=== PATIENT | male | born 2000 | race Hispanic/Latino ===

== ENCOUNTER 2021-10-23 20:36 | Emergency (ER) | payer SELFPAY ==
[2021-10-23 20:50] VITALS: BP 146/86
--- NOTE | 2021-10-23 21:26 | XRay Report ---
XR chest routine 2V INDICATION / CLINICAL INFORMATION: chestpain COMPARISON: None available. FINDINGS: SUPPORT DEVICES: None. HEART / MEDIASTINUM: No significant abnormality. LUNGS / PLEURA: Lungs are clear. Costophrenic sulci are sharp. No pneumothorax. ADDITIONAL FINDINGS: No significant additional findings. IMPRESSION: 1. No acute findings. Signer Name: Hima Herrera MD Signed: 10/23/2021 9:22 PM Workstation Name: [id number]
[2021-10-23] MEDS ORDERED: KETOROLAC 30 MG/1 ML INJ IV ONE (21:49)
[2021-10-23] MEDS ORDERED: dexAMETHasone 20 MG/5 ML VIAL IV ONE (21:49)
[2021-10-23] MEDS ORDERED: LIDOCAINE VISCOUS 2% 15 ML ORAL LIQD PO ONE (21:50)
[2021-10-23] MEDS ORDERED: ASPIRIN 325 MG TAB PO ONE (21:52)
[2021-10-23 23:52] LABS: Basophils # (Auto) 0.1 K/mm3 (0.0-0.1); Basophils % (Auto) 0.9 % (0.0-1.8); Eosinophils # (Auto) 0.1 K/mm3 (0.0-0.4); Eosinophils % (Auto) 1.9 % (0.0-4.3); Hematocrit 48.1 % (35.5-45.6); Hemoglobin 16.1 gm/dl (11.8-15.2); Lymphocytes # (Auto) 2.9 K/mm3 (1.2-5.4); Lymphocytes % (Auto) 41.7 % (13.4-35.0); Mean Corpuscular HGB Conc 34 % (32-34); Mean Corpuscular Volume 85 fl (84-94); Monocytes # (Auto) 0.5 K/mm3 (0.0-0.8); Monocytes % (Auto) 6.7 % (0.0-7.3); Platelet Count 291 K/mm3 (140-440); Red Blood Count 5.69 M/mm3 (3.65-5.03); Red Cell Distribution Width 13.2 % (13.2-15.2)
[2021-10-24 00:09] LABS: Alanine Aminotransferase 31 units/L (7-56); Albumin 4.6 g/dL (3.9-5); Blood Urea Nitrogen 17 mg/dL (9-20); Calcium 9.2 mg/dL (8.4-10.2); Hemolysis Index 5
[2021-10-24 00:10] LABS: BUN/Creatinine Ratio 24
--- NOTE | 2021-10-24 00:19 | Emergency Department Report ---
ED Chest Pain HPI - General Chief Complaint: Chest Pain Stated Complaint: CHEST PAIN Source: patient Mode of arrival: Ambulatory Limitations: No Limitations - History of Present Illness Initial Comments: Patient is a 20-year-old male with no past medical history presented to the ED with complaint of acute onset persistent intermittent palpitations and left-sided chest pain for the last 2 weeks, stating that his heart rate sometimes shoots to 120 bpm during activity. Patient states that the chest pain is left-sided and gets worse with physical activity or lifting. Patient states that he has been monitoring his heart rate through his apple watch and at times it goes up to 130s during the physical activity. Patient denies diaphoresis, shortness of breath, dizziness, syncope, nausea and vomiting, abdominal pain, cough, sore throat, headache, neck pain, upper extremity pain, follow-up or traumatic injury. MD Complaint: chest pain (left-sided), other (tachycardia) -: Sudden, week(s) (2) Onset: during exertion Pain Location: left chest Pain Radiation: none Severity scale (0 -10): 6 Quality: aching Consistency: intermittent Improves With: rest Worsens With: exertion, movement, other (activity) re: denies: nausea, vomting, diaphoresis, dyspnea, sense of impending doom Other Symptoms: palpitations. denies: cough, fever, syncope, rash, acid taste in mouth, leg swelling, burping Treatments Prior to Arrival: none Aspirin use within the Past 7 Days: (0) No - Related Data Previous Rx's Medication Instructions Recorded Last Taken Type Naproxen 500 mg PO Q12H PRN #24 tab 10/24/21 Unknown Rx Allergies Allergy/AdvReac Type Severity Reaction Status Date / Time No Known Allergies Allergy Unverified 10/23/21 20:53 Heart Score - HEART Score History: Slightly suspicious EKG: Normal Age: < 45 Risk factors: No known risk factors Troponin: < normal limit HEART Score: 0 - EKG Read Time Time EKG Completed: 20:53 EKG Read Time: 20:59 - Critical Actions Critical Actions: 0-3 pts:0.9-1.7%risk of adverse cardiac event.Candidate for discharge ED Review of Systems ROS: Stated complaint: CHEST PAIN Other details as noted in HPI Constitutional: denies: chills, fever Eyes: denies: eye pain, eye discharge, vision change ENT: denies: ear pain, throat pain Respiratory: denies: cough, shortness of breath, wheezing Cardiovascular: chest pain (Left-sided chest pain), palpitations (Palpitations) Endocrine: no symptoms reported Gastrointestinal: denies: abdominal pain, nausea, vomiting, diarrhea, constipation, hematemesis Genitourinary: denies: urgency, dysuria Musculoskeletal: denies: back pain, joint swelling, arthralgia Skin: denies: rash, lesions Neurological: denies: headache, weakness, paresthesias Psychiatric: denies: anxiety, depression Hematological/Lymphatic: denies: easy bleeding, easy bruising ED Past Medical Hx - Past Medical History Previous Medical History?: No - Surgical History Past Surgical History?: No - Social History Smoking Status: Never Smoker Substance Use Type: None - Medications Home Medications: Home Medications Medication Instructions Recorded Confirmed Last Taken Type Naproxen 500 mg PO Q12H PRN #24 tab 10/24/21 Unknown Rx ED Physical Exam - General Limitations: No Limitations General appearance: alert, in no apparent distress - Head Head exam: Present: atraumatic, normocephalic, normal inspection - Eye Eye exam: Present: normal appearance, PERRL, EOMI Pupils: Present: normal accommodation - ENT ENT exam: Present: normal exam, normal orophraynx, mucous membranes moist, TM's normal bilaterally, normal external ear exam - Neck Neck exam: Present: normal inspection, full ROM. Absent: tenderness - Respiratory Respiratory exam: Present: normal lung sounds bilaterally. Absent: respiratory distress, wheezes, rales, rhonchi, chest wall tenderness, accessory muscle use, decreased breath sounds, prolonged expiratory - Cardiovascular Cardiovascular Exam: Present: regular rate, normal rhythm, normal heart sounds. Absent: systolic murmur, diastolic murmur, rubs, gallop - GI/Abdominal GI/Abdominal exam: Present: soft, normal bowel sounds. Absent: tenderness, guarding, rebound, hyperactive bowel sounds, hypoactive bowel sounds, organomegaly, mass - Extremities Exam Extremities exam: Present: normal inspection, full ROM, normal capillary refill - Back Exam Back exam: Present: normal inspection, full ROM. Absent: tenderness, CVA tenderness (R), CVA tenderness (L), muscle spasm, paraspinal tenderness, vertebral tenderness - Neurological Exam Neurological exam: Present: alert, oriented X3, CN II-XII intact, normal gait, reflexes normal - Psychiatric Psychiatric exam: Present: normal affect, normal mood, anxious - Skin Skin exam: Present: warm, dry, intact, normal color. Absent: rash ED Course Vital Signs 10/23/21 20:47 Temperature 98.0 F Pulse Rate 95 H Respiratory 18 Rate Blood Pressure 146/86 O2 Sat by Pulse 96 Oximetry SAMM score - Samm Score Age > 65: (0) No Aspirin use within the Past 7 Days: (0) No 3 or more CAD Risk Factors: (0) No 2 or more Angina events in past 24 hrs: (0) No Known CAD with more than 50% Stenosis: (0) No Elevated Cardiac Markers: (0) No ST Deviation Greater than 0.5mm: (0) No SAMM Score: 0 ED Medical Decision Making - Lab Data Result diagrams: 10/23/21 22:05 10/23/21 22:05 - EKG Data EKG shows normal: sinus rhythm Rate: normal - EKG Data Interpretation: normal EKG 10/24/21 06:10 EKG shows normal sinus rhythm with a ventricular rate of [address] or T wave abnormalities. - Radiology Data Radiology results: report reviewed, [place] [address] XRay Report Signed Patient: NELSY HIDALGO III MR#: [id number] : 2000 Acct:[id number] Age/Sex: 20 / M ADM Date: 10/23/21 Loc: ED Attending Dr: Ordering Physician: ED MD JASBIR Date of Service: 10/23/21 Procedure(s): XR chest routine 2V Accession Number(s): [id number] cc: ED MD JASBIR Fluoro Time In Minutes: XR chest routine 2V INDICATION / CLINICAL INFORMATION: chestpain COMPARISON: None available. FINDINGS: SUPPORT DEVICES: None. HEART / MEDIASTINUM: No significant abnormality. LUNGS / PLEURA: Lungs are clear. Costophrenic sulci are sharp. No pneumothorax. ADDITIONAL FINDINGS: No significant additional findings. IMPRESSION: 1. No acute findings. Signer Name: Hima Herrera MD Signed: 10/23/2021 9:22 PM Workstation Name: [id number] Transcribed By: CS Dictated By: Hima Herrera MD Electronically Authenticated By: Hima Herrera MD Signed Date/Time: 10/23/212121 DD/ 21 TD/TT: Print - Medical Decision Making This is a 20-year-old male with no past medical history presented to the ED with complaint of acute onset persistent intermittent palpitations and left-sided chest pain for the last 2 weeks, stating that his heart rate some times shoots to 120 bpm during activity. Patient states that the chest pain is left-sided and gets worse with physical activity or lifting. Patient states that he has been monitoring his heart rate through his apple watch and at times it goes up to 130s during the physical activity. In the ED, patient is alert and oriented x3 and is not in any distress. Chest x-ray showed no acute cardiopulmonary abnormalities or pneumonitis. Lab test results were reviewed and are all nonactionable. EKG shows normal sinus rhythm with a ventricular rate of [address] or T wave abnormalities. Patient has had the symptoms for over 2 weeks intermittently and that his symptoms are exacerbated by acti vity. Patient heart score is 0 and patient is PERC negative per Wells criteria. Patient symptoms a likely due to anxiety or nonspecific muscle strain of chest wall following physical activity. The stated tachycardia or palpitations generally normal during physical activity when the heart rate is expected to increase to support life. Patient was therefore discharged home and advised to follow-up with his primary care physician in 5 to 7 days for reevaluation. Patient is advised return to the ED immediately if symptoms get worse. - Differential Diagnosis ACS; anxiety; costochondritis; muscle strain; dehydration; Critical care attestation.: If time is entered above; I have spent that time in minutes in the direct care of this critically ill patient, excluding procedure time. ED Disposition Clinical Impression: Acute nonspecific chest pain with low risk of coronary artery disease, Anxiety as acute reaction to exceptional stress, Muscle strain of anterior chest wall Disposition: 01 HOME / SELF CARE / HOMELESS Is pt being admited?: No Does the pt Need Aspirin: No Condition: Stable Instructions: Generalized Anxiety Disorder, Adult, Chest Wall Pain, [id number], Muscle Strain, [id number], Nonspecific Chest Pain, Adult, [id number], Chest Pain (ED) Additional Instructions: All lab test results were reviewed and are all nonactionable. Chest x-ray showed no acute cardiopulmonary abnormalities or pneumonitis. Your EKG was unremarkable. Therefore your symptoms are not cardiac related and the elevated heart rate as stated by you is normal during physical activity in order to support life. Therefore the chest pain is likely musculoskeletal or muscle strain. Therefore take medications as needed for pain, drink plenty of fluids and follow-up with your primary care physician in 5 to 7 days for reevaluation. Return to the ED immediately if symptoms get worse. Prescriptions: Naproxen 500 mg PO Q12H PRN #24 tab PRN Reason: Pain , Severe (7-10) Referrals: [facility] [Provider Group] - 3-5 Days Time of Disposition: 00:20 Print Language: SERBIAN
--- NOTE | 2021-10-24 14:38 | Electrocardiograph Report ---
[facility] Test Date: 2021-10-23 Test Time: 20:53:28 Pat Name: NELSY HIDALGO III Department: Room: Gender: M [employer]: SLAVA : 2000 Requested By: ALTAGRACIA VOGEL Order Number: [id number] Reading MD: Giovanni Davidson Measurements Intervals [place] Rate: 84 P: 64 FL: 139 QRS: 70 QRSD: 67 T: 46 QT: 338 QTc: 399 Interpretive Statements Sinus rhythm No previous ECG available for comparison Electronically Signed On 10-24-2021 14:37:43 EST by Giovanni Davidson
== END 2021-10-24 02:27 | disposition home or self-care (01) ==
LOC: ED 20:36
DX: S29.011A Strain of muscle and tendon of front wall of thorax, initial encounter (principal); I25.119 Atherosclerotic heart disease of native coronary artery with unspecified angina pectoris; F43.0 Acute stress reaction; X58.XXXA Exposure to other specified factors, initial encounter; Y93.89 Activity, other specified; Y92.89 Other specified places as the place of occurrence of the external cause; Y99.8 Other external cause status
CPT/HCPCS: 36415; 71046; 80053; 84484; 85025; 93005; 93010; 99284